=== PATIENT | female | born 1940 | race Caucasian/White ===

== ENCOUNTER 2020-01-15 19:04 | Inpatient (IN) | payer MEDICARE, MEDICAID, OTHER ==
[~2020-01-15] VITALS: Ht 165.1 cm; Wt 88.5 kg
[2020-01-15 20:34] LABS: BASOPHILS % 0.3 % (0.0-2.0); HEMATOCRIT. 35.3 % (36.0-48.0); HEMOGLOBIN. 11.8 g/dL (12.0-16.0); LYMPHOCYTES % 8.2 % (20.0-50.0); MEAN CORPUSCULAR HEMOGLOBIN 26.9 pg (28.0-32.0); MEAN CORPUSCULAR VOLUME 80.3 fL (81.0-99.0); MEAN PLATELET VOLUME 8.6 fl (7.4-10.4); MONOCYTES % 4.6 % (2.0-8.0); NEUTROPHILS % 84.9 % (40.0-76.0); PLATELET 152 x1000/uL (130-400); RED CELL DISTRIBUTION WIDTH 14.5 % (11.6-14.6)
[2020-01-15 20:39] LABS: PROTHROMBIN TIME 10.5 sec (9.6-11.0)
[2020-01-15 20:40] LABS: CHLORIDE 110 mEq/L (98-107)
[2020-01-15] MEDS ORDERED: ASPIRIN 325MG EC TABLET PO ONE (21:15)
[2020-01-15] MEDS ORDERED: ENOXAPARIN 80MG/0.8ML SYR SUBCUT ONE (21:15)
[2020-01-15] MEDS ORDERED: POTASSIUM CHLORIDE 20MEQ TABLET SR PO ONE (22:15)
[2020-01-16] VITALS (27 sets, daily range): BP systolic 117–151; BP diastolic 57–88
[2020-01-16] MEDS ORDERED: ACETAMINOPHEN 325MG TABLET PO PRN ×2 (01:45→13:30)
[2020-01-16] MEDS ORDERED: HYDROCODONE/ACETAMINOPHEN 5/325MG TABLET PO PRN (01:45)
[2020-01-16] MEDS ORDERED: DEXTROSE 50% WATER 50ML SYRINGE IV PRN (01:45)
[2020-01-16] MEDS: INSULIN LISPRO 100 UNITS/ML SUBCUT SCH ×4 (07:20→21:46)
[2020-01-16] MEDS: BLOOD SUGAR DIAGNOSTIC STRIP TEST SCH ×4 (07:39→21:54)
[2020-01-16] MEDS: ASPIRIN 81MG TABLET PO SCH (08:21)
[2020-01-16] MEDS: SODIUM CHLORIDE 0.45% 1,000 ML IV SCH (08:21)
[2020-01-16] MEDS: FOLIC ACID 1MG TABLET PO SCH (08:21)
[2020-01-16] MEDS: NITROGLYCERIN OINT 1GM/INCH UDPKT TD SCH ×3 (08:27→21:47)
[2020-01-16 08:56] LABS: BASOPHILS % 0.8 % (0.0-2.0); EOSINOPHILS % 1.6 % (0.0-5.0); HEMATOCRIT. 34.5 % (36.0-48.0); HEMOGLOBIN. 11.5 g/dL (12.0-16.0); LYMPHOCYTES % 15.5 % (20.0-50.0); MEAN CORPUSCULAR HEMOGLOBIN 26.9 pg (28.0-32.0); MEAN CORPUSCULAR VOLUME 80.5 fL (81.0-99.0); MEAN PLATELET VOLUME 8.6 fl (7.4-10.4); MONOCYTES % 6.9 % (2.0-8.0); NEUTROPHILS % 75.2 % (40.0-76.0); PLATELET 155 x1000/uL (130-400); RED BLOOD CELL COUNT 4.29 mill/uL (4.2-5.4); RED CELL DISTRIBUTION WIDTH 14.3 % (11.6-14.6)
[2020-01-16] MEDS ORDERED: ENOXAPARIN 40MG/0.4ML SYR SUBCUT SCH (09:00)
[2020-01-16] MEDS: METOPROLOL TARTRATE 25MG TABLET PO SCH ×2 (09:00→21:45)
[2020-01-16] MEDS ORDERED: MIDAZOLAM HCL 2 MG/2 ML VIAL ONE (12:34)
[2020-01-16] MEDS ORDERED: IOHEXOL-300 100 ML BOTTLE ONE (12:35)
[2020-01-16] MEDS ORDERED: LIDOCAINE HCL 1% 20ML VIAL (Pyxis) INJ ONE (12:35)
[2020-01-16] MEDS ORDERED: FENTANYL CITRATE/PF 50MCG/ML 2ML VIAL ONE (12:35)
[2020-01-16] MEDS ORDERED: HEPARIN 1,000 UNITS PREMIX 0 ML IV ONE (12:35)
[2020-01-16] MEDS ORDERED: HEPARIN SODIUM 1,000 UNIT/1ML VIAL IV ONE (12:43)
[2020-01-16] MEDS ORDERED: ATROPINE SULFATE 1MG/10ML SYR IV PRN (13:30)
[2020-01-16] MEDS ORDERED: IODIXANOL 320MG/ML 100 ML BOTTLE IV ONE (13:53)
[2020-01-16] MEDS: CLOPIDOGREL 75MG TABLET PO SCH (14:02)
[2020-01-16] MEDS: ATORVASTATIN CALCIUM 10MG TABLET PO SCH (21:44)
[2020-01-17] VITALS (13 sets, daily range): BP systolic 106–151; BP diastolic 53–77
[2020-01-17] MEDS: NITROGLYCERIN OINT 1GM/INCH UDPKT TD SCH ×3 (06:53→21:20)
[2020-01-17] MEDS: SODIUM CHLORIDE 0.45% 1,000 ML IV SCH ×3 (06:53→21:21)
[2020-01-17] MEDS: BLOOD SUGAR DIAGNOSTIC STRIP TEST SCH ×4 (06:53→21:20)
[2020-01-17] MEDS: INSULIN LISPRO 100 UNITS/ML SUBCUT SCH ×4 (07:15→21:00)
[2020-01-17 07:53] LABS: BASOPHILS % 0.4 % (0.0-2.0); HEMATOCRIT. 32.2 % (36.0-48.0); HEMOGLOBIN. 10.9 g/dL (12.0-16.0); LYMPHOCYTES % 12.7 % (20.0-50.0); MEAN CORPUSCULAR HEMOGLOBIN 27.3 pg (28.0-32.0); MEAN CORPUSCULAR VOLUME 80.6 fL (81.0-99.0); MEAN PLATELET VOLUME 8.8 fl (7.4-10.4); MONOCYTES % 8.3 % (2.0-8.0); NEUTROPHILS % 77.6 % (40.0-76.0); PLATELET 136 x1000/uL (130-400); RED BLOOD CELL COUNT 3.99 mill/uL (4.2-5.4); RED CELL DISTRIBUTION WIDTH 14.4 % (11.6-14.6)
[2020-01-17] MEDS: CLOPIDOGREL 75MG TABLET PO SCH (08:26)
[2020-01-17] MEDS: ASPIRIN 81MG TABLET PO SCH (08:26)
[2020-01-17] MEDS: METOPROLOL TARTRATE 25MG TABLET PO SCH (08:28)
[2020-01-17] MEDS: FOLIC ACID 1MG TABLET PO SCH (08:30)
[2020-01-17] MEDS: APIXABAN 5 MG TABLET PO SCH ×2 (09:39→17:13)
[2020-01-17] MEDS ORDERED: APIX5TAB PO (13:21)
[2020-01-17] MEDS ORDERED: ATOR10TA PO (13:21)
[2020-01-17] MEDS: ATORVASTATIN CALCIUM 10MG TABLET PO SCH (21:21)
[2020-01-18] VITALS (11 sets, daily range): BP systolic 100–159; BP diastolic 60–88
[2020-01-18] MEDS: NITROGLYCERIN OINT 1GM/INCH UDPKT TD SCH ×3 (06:11→22:38)
[2020-01-18] MEDS: BLOOD SUGAR DIAGNOSTIC STRIP TEST SCH ×4 (06:50→22:31)
[2020-01-18 06:52] LABS: BASOPHILS % 0.4 % (0.0-2.0); EOSINOPHILS % 1.6 % (0.0-5.0); HEMATOCRIT. 30.1 % (36.0-48.0); HEMOGLOBIN. 10.2 g/dL (12.0-16.0); LYMPHOCYTES % 11.9 % (20.0-50.0); MEAN CORPUSCULAR HEMOGLOBIN 27.2 pg (28.0-32.0); MEAN CORPUSCULAR VOLUME 80.2 fL (81.0-99.0); MEAN PLATELET VOLUME 8.9 fl (7.4-10.4); MONOCYTES % 10.5 % (2.0-8.0); NEUTROPHILS % 75.6 % (40.0-76.0); PLATELET 124 x1000/uL (130-400); RED BLOOD CELL COUNT 3.75 mill/uL (4.2-5.4); RED CELL DISTRIBUTION WIDTH 14.3 % (11.6-14.6)
[2020-01-18] MEDS: INSULIN LISPRO 100 UNITS/ML SUBCUT SCH ×4 (07:20→22:40)
[2020-01-18] MEDS: APIXABAN 5 MG TABLET PO SCH ×2 (09:01→18:29)
[2020-01-18] MEDS: CLOPIDOGREL 75MG TABLET PO SCH (09:01)
[2020-01-18] MEDS: ASPIRIN 81MG TABLET PO SCH (09:02)
[2020-01-18] MEDS: FOLIC ACID 1MG TABLET PO SCH (09:02)
[2020-01-18] MEDS: SODIUM CHLORIDE 0.45% 1,000 ML IV SCH (11:17)
[2020-01-18] MEDS: FUROSEMIDE 40MG/4ML VIAL IVP SCH ×2 (13:11→18:29)
[2020-01-18] MEDS: ATORVASTATIN CALCIUM 10MG TABLET PO SCH (22:38)
[2020-01-19] VITALS (12 sets, daily range): BP systolic 106–158; BP diastolic 57–86
[2020-01-19] MEDS: BLOOD SUGAR DIAGNOSTIC STRIP TEST SCH ×4 (06:21→22:08)
[2020-01-19] MEDS: NITROGLYCERIN OINT 1GM/INCH UDPKT TD SCH ×3 (06:26→22:04)
[2020-01-19 06:49] LABS: BASOPHILS % 0.8 % (0.0-2.0); EOSINOPHILS % 1.1 % (0.0-5.0); HEMATOCRIT. 31.4 % (36.0-48.0); HEMOGLOBIN. 10.7 g/dL (12.0-16.0); LYMPHOCYTES % 13.5 % (20.0-50.0); MEAN CORPUSCULAR HEMOGLOBIN 27.1 pg (28.0-32.0); MEAN CORPUSCULAR VOLUME 79.6 fL (81.0-99.0); MEAN PLATELET VOLUME 8.8 fl (7.4-10.4); MONOCYTES % 9.1 % (2.0-8.0); NEUTROPHILS % 75.5 % (40.0-76.0); PLATELET 143 x1000/uL (130-400); RED BLOOD CELL COUNT 3.94 mill/uL (4.2-5.4); RED CELL DISTRIBUTION WIDTH 14.4 % (11.6-14.6)
[2020-01-19] MEDS: FUROSEMIDE 40MG/4ML VIAL IVP SCH ×2 (07:15→16:15)
[2020-01-19] MEDS: INSULIN LISPRO 100 UNITS/ML SUBCUT SCH ×4 (07:20→22:15)
[2020-01-19] MEDS: CLOPIDOGREL 75MG TABLET PO SCH (08:28)
[2020-01-19] MEDS: FOLIC ACID 1MG TABLET PO SCH (08:29)
[2020-01-19] MEDS: APIXABAN 5 MG TABLET PO SCH ×2 (08:29→16:15)
[2020-01-19] MEDS: ASPIRIN 81MG TABLET PO SCH (08:29)
[2020-01-19] MEDS: MAGNESIUM GLUCONATE 500MG TABLET PO SCH (10:07)
[2020-01-19] MEDS: POTASSIUM CHLORIDE 20MEQ TABLET SR PO SCH (10:10)
[2020-01-19] MEDS: ATORVASTATIN CALCIUM 10MG TABLET PO SCH (22:04)
[2020-01-20] VITALS: BP 119/72
[2020-01-20 02:00] VITALS: BP 127/63
[2020-01-20 04:00] VITALS: BP 114/54
[2020-01-20] MEDS: NITROGLYCERIN OINT 1GM/INCH UDPKT TD SCH (05:37)
[2020-01-20] MEDS: BLOOD SUGAR DIAGNOSTIC STRIP TEST SCH ×2 (05:42→11:34)
[2020-01-20 06:00] VITALS: BP 123/68
[2020-01-20] MEDS: FUROSEMIDE 40MG/4ML VIAL IVP SCH (07:15)
[2020-01-20] MEDS: INSULIN LISPRO 100 UNITS/ML SUBCUT SCH ×2 (07:20→11:34)
[2020-01-20 08:00] VITALS: BP 133/62
[2020-01-20] MEDS: CLOPIDOGREL 75MG TABLET PO SCH (08:50)
[2020-01-20] MEDS: ASPIRIN 81MG TABLET PO SCH (08:50)
[2020-01-20] MEDS: MAGNESIUM GLUCONATE 500MG TABLET PO SCH (08:50)
[2020-01-20] MEDS: APIXABAN 5 MG TABLET PO SCH (08:50)
[2020-01-20] MEDS: FOLIC ACID 1MG TABLET PO SCH (08:50)
[2020-01-20] MEDS: POTASSIUM CHLORIDE 20MEQ TABLET SR PO SCH (08:51)
[2020-01-20 10:00] VITALS: BP 110/57
[2020-01-20] MEDS ORDERED: FURO-151 MT (12:53)
== END 2020-01-20 13:16 | disposition home or self-care (01) | DRG 280 ==
LOC: ER 19:04 → 3WST 22:02 → EDBEDREQTM 22:06 → EDBEDREQSVC 22:06 → EDBEDREQ 22:06 → ENRESERV 23:03
PROVIDERS: ADMIT Internal Medicine; ATTEND Internal Medicine
PROC: 3E033GC Introduction of Other Therapeutic Substance into Peripheral Vein, Percutaneous Approach (ICD-10-PCS; principal; 2020-01-16)
PROC: 4A023N7 Measurement of Cardiac Sampling and Pressure, Left Heart, Percutaneous Approach (ICD-10-PCS; 2020-01-16)
PROC: B2161ZZ Fluoroscopy of Right and Left Heart using Low Osmolar Contrast (ICD-10-PCS; 2020-01-16)
DX: I21.4 Non-ST elevation (NSTEMI) myocardial infarction (principal); I50.41 Acute combined systolic (congestive) and diastolic (congestive) heart failure; I47.2 Ventricular tachycardia; I42.9 Cardiomyopathy, unspecified; E44.0 Moderate protein-calorie malnutrition; E11.9 Type 2 diabetes mellitus without complications; E78.5 Hyperlipidemia, unspecified; I25.110 Atherosclerotic heart disease of native coronary artery with unstable angina pectoris; I48.91 Unspecified atrial fibrillation; E87.6 Hypokalemia; E83.42 Hypomagnesemia; I11.0 Hypertensive heart disease with heart failure; I27.21 Secondary pulmonary arterial hypertension; I34.0 Nonrheumatic mitral (valve) insufficiency; I36.1 Nonrheumatic tricuspid (valve) insufficiency; Z95.1 Presence of aortocoronary bypass graft; Z95.2 Presence of prosthetic heart valve; Z82.49 Family history of ischemic heart disease and other diseases of the circulatory system; Z82.3 Family history of stroke; Z68.32 Body mass index [BMI] 32.0-32.9, adult
CPT/HCPCS: 36415; 71045; 71046; 80048; 80053; 80061; 82962; 83036; 83735; 83880; 84443; 84484; 85025; 93005; 93306; 93459; 99285; C1760; C1769; C1887; C1893; J1644; J1650; J1815; J1940; J2250; J3010; J3490; Q9967

== ENCOUNTER 2020-04-18 11:54 | Inpatient (IN) | payer MEDICARE, BC, MEDICAID, OTHER ==
[~2020-04-18] VITALS: Ht 165.1 cm; Wt 77.3 kg
[~2020-04-18 11:54] MED LIST: APIX5TAB PO; ATOR10TA PO; FURO-151 MT
[2020-04-18] MEDS: LOSARTAN POTASSIUM 25 MG TABLET PO SCH ×3 (12:30→13:26)
[2020-04-18 12:34] LABS: BASOPHILS % 0.6 % (0.0-2.0); EOSINOPHILS % 1.3 % (0.0-5.0); HEMATOCRIT. 31.6 % (36.0-48.0); HEMOGLOBIN. 10.2 g/dL (12.0-16.0); LYMPHOCYTES % 11.1 % (20.0-50.0); MEAN CORPUSCULAR HEMOGLOBIN 26.1 pg (28.0-32.0); MEAN CORPUSCULAR VOLUME 80.7 fL (81.0-99.0); MEAN PLATELET VOLUME 8.9 fl (7.4-10.4); MONOCYTES % 6.2 % (2.0-8.0); NEUTROPHILS % 80.8 % (40.0-76.0); PLATELET 138 x1000/uL (130-400); RED BLOOD CELL COUNT 3.92 mill/uL (4.2-5.4); RED CELL DISTRIBUTION WIDTH 16.2 % (11.6-14.6)
[2020-04-18 12:44] LABS: INR 1.1; PROTHROMBIN TIME 11.4 sec (9.6-11.0)
[2020-04-18 12:45] LABS: CHLORIDE 102 mEq/L (98-107)
[2020-04-18 12:51] LABS: LDL CHOLESTEROL 75 mg/dL (5-100)
[2020-04-18 12:52] LABS: HDL CHOLESTEROL 51 mg/dL (40-59)
[2020-04-18] MEDS: FUROSEMIDE 40MG/4ML VIAL IVP SCH ×2 (12:56→22:55)
[2020-04-18] MEDS ORDERED: APIXABAN 5 MG TABLET PO NR (13:30)
[2020-04-18] MEDS: POTASSIUM CHLORIDE 20MEQ TABLET SR PO SCH (13:45)
[2020-04-18] MEDS ORDERED: HEPARIN 1000 UNITS/ML 10ML ONE (14:04)
[2020-04-18] MEDS ORDERED: LIDOCAINE HCL 1% 20ML VIAL (Pyxis) INJ ONE (14:04)
[2020-04-18] MEDS ORDERED: SODIUM BICARBONATE 4% (2.4MEQ) 5ML VIAL IV ONE (14:04)
[2020-04-18] MEDS ORDERED: POTASSIUM CHLORIDE 20MEQ TABLET SR PO SCH (14:15)
[2020-04-18] MEDS ORDERED: ONDANSETRON HCL 4MG/2ML INJ IV PRN (14:15)
[2020-04-18] MEDS ORDERED: POTASSIUM CHLORIDE 20MEQ TABLET SR PO ONE (15:30)
[2020-04-18] MEDS: INSULIN LISPRO 100 UNITS/ML SUBCUT SCH ×2 (17:20→20:55)
[2020-04-18] MEDS: DEXTROSE 50% WATER 50ML SYRINGE IV PRN (17:23)
[2020-04-18] MEDS: BLOOD SUGAR DIAGNOSTIC STRIP TEST SCH ×2 (17:23→20:55)
[2020-04-18 18:43] VITALS: BP 136/57
[2020-04-18 20:10] VITALS: BP 109/54
[2020-04-18] MEDS ORDERED: TRAZODONE HCL 50MG TABLET PO PRN (21:00)
[2020-04-18] MEDS: CARVEDILOL 3.125 MG TABLET PO SCH (21:00)
[2020-04-18 22:10] VITALS: BP 104/55
[2020-04-18] MEDS: ATORVASTATIN CALCIUM 40MG TABLET PO SCH (22:55)
[2020-04-18] MEDS: APIXABAN 5 MG TABLET PO SCH (22:55)
[2020-04-18] MEDS: ACETAMINOPHEN 325MG TABLET PO PRN (23:02)
[2020-04-19] VITALS (17 sets, daily range): BP systolic 96–124; BP diastolic 44–85
[2020-04-19 02:03] LABS: CLARITY URINE CLOUDY (CLEAR); COLOR URINE DARK YELLOW (YELLOW); KETONES URINE NEGATIVE (NEGATIVE); LEUKOCYTE ESTERASE URINE 2+ (NEGATIVE); NITRITE URINE NEGATIVE (NEGATIVE); OCCULT BLOOD URINE TRACE (NEGATIVE); PROTEIN URINE 2+ (NEGATIVE); SPECIFIC GRAVITY URINE 1.021 (1.005-1.030)
[2020-04-19] MEDS: BLOOD SUGAR DIAGNOSTIC STRIP TEST SCH ×4 (06:22→21:33)
[2020-04-19] MEDS: DEXTROSE 50% WATER 50ML SYRINGE IV PRN (06:23)
[2020-04-19 06:38] LABS: CHLORIDE 105 mEq/L (98-107)
[2020-04-19] MEDS ORDERED: CEFTRIAXONE 1 G PREMIX 50 ML IV SCH (06:45)
[2020-04-19 06:50] LABS: LDL CHOLESTEROL 70 mg/dL (5-100)
[2020-04-19 06:51] LABS: HDL CHOLESTEROL 46 mg/dL (40-59)
[2020-04-19 07:10] LABS: BASOPHILS % 0.8 % (0.0-2.0); EOSINOPHILS % 5.2 % (0.0-5.0); HEMATOCRIT. 29.2 % (36.0-48.0); HEMOGLOBIN. 9.5 g/dL (12.0-16.0); LYMPHOCYTES % 18.7 % (20.0-50.0); MEAN CORPUSCULAR HEMOGLOBIN 26.1 pg (28.0-32.0); MEAN CORPUSCULAR VOLUME 80.6 fL (81.0-99.0); MEAN PLATELET VOLUME 9.1 fl (7.4-10.4); MONOCYTES % 10.5 % (2.0-8.0); NEUTROPHILS % 64.8 % (40.0-76.0); PLATELET 116 x1000/uL (130-400); RED BLOOD CELL COUNT 3.63 mill/uL (4.2-5.4)
[2020-04-19] MEDS: INSULIN LISPRO 100 UNITS/ML SUBCUT SCH ×2 (07:20→12:02)
[2020-04-19] MEDS ORDERED: CEFTRIAXONE 1,000 MG in DEXTROSE 5% WATER 50 ML IV SCH (08:00)
[2020-04-19] MEDS: FUROSEMIDE 40MG/4ML VIAL IVP SCH (08:27)
[2020-04-19] MEDS: POTASSIUM CHLORIDE 20MEQ TABLET SR PO SCH (08:28)
[2020-04-19] MEDS: APIXABAN 5 MG TABLET PO SCH (08:28)
[2020-04-19] MEDS: CARVEDILOL 3.125 MG TABLET PO SCH ×2 (08:29→21:00)
[2020-04-19] MEDS ORDERED: POTASSIUM CHLORIDE 20MEQ TABLET SR PO SCH (08:45)
[2020-04-19] MEDS ORDERED: POTASSIUM CHLORIDE 20MEQ TABLET SR PO NR ×2 (13:15→15:00)
[2020-04-19] MEDS: APIXABAN 2.5 MG TABLET PO SCH (16:54)
[2020-04-19] MEDS ORDERED: ALBUMIN HUMAN 12.5GM/50ML (25%) IV NR (17:00)
[2020-04-19] MEDS: ATORVASTATIN CALCIUM 40MG TABLET PO SCH (22:45)
[2020-04-20] VITALS (18 sets, daily range): BP systolic 93–132; BP diastolic 35–70
[2020-04-20] MEDS: BLOOD SUGAR DIAGNOSTIC STRIP TEST SCH ×4 (06:14→20:31)
[2020-04-20 06:23] LABS: BASOPHILS % 0.6 % (0.0-2.0); EOSINOPHILS % 3.5 % (0.0-5.0); HEMATOCRIT. 29.8 % (36.0-48.0); HEMOGLOBIN. 9.5 g/dL (12.0-16.0); LYMPHOCYTES % 14.1 % (20.0-50.0); MEAN CORPUSCULAR HEMOGLOBIN 26.1 pg (28.0-32.0); MEAN CORPUSCULAR VOLUME 81.4 fL (81.0-99.0); MEAN PLATELET VOLUME 8.6 fl (7.4-10.4); MONOCYTES % 7.5 % (2.0-8.0); NEUTROPHILS % 74.3 % (40.0-76.0); PLATELET 128 x1000/uL (130-400); RED BLOOD CELL COUNT 3.66 mill/uL (4.2-5.4); RED CELL DISTRIBUTION WIDTH 16.2 % (11.6-14.6)
[2020-04-20 06:34] LABS: CHLORIDE 103 mEq/L (98-107)
[2020-04-20] MEDS ORDERED: FUROSEMIDE 40MG/4ML VIAL IVP SCH (09:00)
[2020-04-20] MEDS: CARVEDILOL 3.125 MG TABLET PO SCH ×2 (09:28→20:27)
[2020-04-20] MEDS: APIXABAN 2.5 MG TABLET PO SCH ×2 (09:29→17:28)
[2020-04-20] MEDS: ATORVASTATIN CALCIUM 40MG TABLET PO SCH (20:26)
[2020-04-21] VITALS (12 sets, daily range): BP systolic 95–124; BP diastolic 42–58
[2020-04-21] MEDS: BLOOD SUGAR DIAGNOSTIC STRIP TEST SCH ×4 (06:32→21:16)
[2020-04-21 07:17] LABS: BASOPHILS % 0.9 % (0.0-2.0); EOSINOPHILS % 4.6 % (0.0-5.0); HEMATOCRIT. 30.3 % (36.0-48.0); HEMOGLOBIN. 9.8 g/dL (12.0-16.0); LYMPHOCYTES % 16.8 % (20.0-50.0); MEAN CORPUSCULAR HEMOGLOBIN 25.9 pg (28.0-32.0); MEAN CORPUSCULAR VOLUME 80.4 fL (81.0-99.0); MONOCYTES % 9.9 % (2.0-8.0); NEUTROPHILS % 67.8 % (40.0-76.0); PLATELET 116 x1000/uL (130-400); RED BLOOD CELL COUNT 3.77 mill/uL (4.2-5.4)
[2020-04-21 07:48] LABS: CHLORIDE 103 mEq/L (98-107)
[2020-04-21] MEDS: CARVEDILOL 3.125 MG TABLET PO SCH ×2 (08:07→21:00)
[2020-04-21] MEDS: APIXABAN 2.5 MG TABLET PO SCH ×2 (08:28→17:17)
[2020-04-21] MEDS ORDERED: DEXTROSE 50% WATER 50ML SYRINGE IV PRN (21:15)
[2020-04-21] MEDS: ATORVASTATIN CALCIUM 40MG TABLET PO SCH (21:16)
[2020-04-21] MEDS: INSULIN LISPRO 100 UNITS/ML SUBCUT SCH (21:26)
[2020-04-22] VITALS (12 sets, daily range): BP systolic 96–123; BP diastolic 47–63
[2020-04-22] MEDS: BLOOD SUGAR DIAGNOSTIC STRIP TEST SCH ×4 (06:17→20:53)
[2020-04-22] MEDS ORDERED: BLOOD SUGAR DIAGNOSTIC STRIP TEST SCH (06:50)
[2020-04-22] MEDS ORDERED: INSULIN LISPRO 100 UNITS/ML SUBCUT SCH (07:20)
[2020-04-22 07:42] LABS: BASOPHILS % 0.7 % (0.0-2.0); EOSINOPHILS % 5.8 % (0.0-5.0); HEMATOCRIT. 29.7 % (36.0-48.0); HEMOGLOBIN. 9.7 g/dL (12.0-16.0); LYMPHOCYTES % 17.4 % (20.0-50.0); MEAN CORPUSCULAR HEMOGLOBIN 26.3 pg (28.0-32.0); MEAN CORPUSCULAR VOLUME 80.8 fL (81.0-99.0); MEAN PLATELET VOLUME 8.7 fl (7.4-10.4); MONOCYTES % 8.4 % (2.0-8.0); NEUTROPHILS % 67.7 % (40.0-76.0); PLATELET 107 x1000/uL (130-400); RED BLOOD CELL COUNT 3.68 mill/uL (4.2-5.4); RED CELL DISTRIBUTION WIDTH 15.4 % (11.6-14.6)
[2020-04-22 07:56] LABS: CHLORIDE 103 mEq/L (98-107)
[2020-04-22] MEDS: INSULIN LISPRO 100 UNITS/ML SUBCUT SCH ×4 (08:13→20:55)
[2020-04-22] MEDS: APIXABAN 2.5 MG TABLET PO SCH ×2 (08:13→17:19)
[2020-04-22] MEDS: CARVEDILOL 3.125 MG TABLET PO SCH ×2 (08:14→20:52)
[2020-04-22] MEDS: ACETAMINOPHEN 325MG TABLET PO PRN (17:19)
[2020-04-22] MEDS: ATORVASTATIN CALCIUM 40MG TABLET PO SCH (20:52)
[2020-04-22] MEDS: AMLODIPINE 2.5MG TABLET PO SCH (20:53)
[2020-04-23] VITALS (10 sets, daily range): BP systolic 102–122; BP diastolic 44–72
[2020-04-23] MEDS: BLOOD SUGAR DIAGNOSTIC STRIP TEST SCH (06:21)
[2020-04-23] MEDS ORDERED: FUROSEMIDE 40MG TABLET PO SCH (07:00)
[2020-04-23 09:07] LABS: BASOPHILS % 0.8 % (0.0-2.0); EOSINOPHILS % 6.9 % (0.0-5.0); HEMATOCRIT. 30.7 % (36.0-48.0); LYMPHOCYTES % 16.2 % (20.0-50.0); MEAN CORPUSCULAR HEMOGLOBIN 26.4 pg (28.0-32.0); MEAN CORPUSCULAR VOLUME 80.9 fL (81.0-99.0); MONOCYTES % 7.8 % (2.0-8.0); NEUTROPHILS % 68.3 % (40.0-76.0); PLATELET 106 x1000/uL (130-400); RED CELL DISTRIBUTION WIDTH 15.5 % (11.6-14.6)
[2020-04-23] MEDS: APIXABAN 2.5 MG TABLET PO SCH (09:15)
[2020-04-23] MEDS: AMLODIPINE 2.5MG TABLET PO SCH (09:16)
[2020-04-23] MEDS: CARVEDILOL 3.125 MG TABLET PO SCH (09:16)
[2020-04-23] MEDS: INSULIN LISPRO 100 UNITS/ML SUBCUT SCH ×2 (09:17→12:20)
[2020-04-23 09:21] LABS: CHLORIDE 104 mEq/L (98-107)
[2020-04-23] MEDS ORDERED: FURO40TA5 PO (13:15)
[2020-04-23] MEDS ORDERED: COR3 PO (13:15)
[2020-04-23] MEDS ORDERED: LIP40 PO (13:15)
[2020-04-23] MEDS ORDERED: LOSA25TA3 PO (13:15)
[2020-04-23] MEDS ORDERED: APIX2.5T PO (13:15)
[2020-04-23] MEDS ORDERED: AMLO2.5T45 PO (13:15)
== END 2020-04-23 14:30 | disposition home health service (06) | DRG 280 ==
LOC: ER 11:54 → EDBEDREQTM 12:35 → EDBEDREQ 12:35 → 3WST 13:08 → EDBEDREQ 13:11 → EDBEDREQTM 13:11 → EDBEDREQSVC 14:03 → ENRESERV 16:03
PROVIDERS: ADMIT Internal Medicine; ATTEND Internal Medicine
PROC: 5A1D70Z Performance of Urinary Filtration, Intermittent, Less than 6 Hours Per Day (ICD-10-PCS; principal; 2020-04-18)
PROC: 06HY33Z Insertion of Infusion Device into Lower Vein, Percutaneous Approach (ICD-10-PCS; 2020-04-18)
PROC: B54BZZA Ultrasonography of Right Lower Extremity Veins, Guidance (ICD-10-PCS; 2020-04-18)
PROC: B51BZZA Fluoroscopy of Right Lower Extremity Veins, Guidance (ICD-10-PCS; 2020-04-18)
PROC: 5A1D70Z Performance of Urinary Filtration, Intermittent, Less than 6 Hours Per Day (ICD-10-PCS; 2020-04-19)
PROC: 5A1D70Z Performance of Urinary Filtration, Intermittent, Less than 6 Hours Per Day (ICD-10-PCS; 2020-04-20)
PROC: 5A1D70Z Performance of Urinary Filtration, Intermittent, Less than 6 Hours Per Day (ICD-10-PCS; 2020-04-21)
DX: I13.0 Hypertensive heart and chronic kidney disease with heart failure and stage 1 through stage 4 chronic kidney disease, or unspecified chronic kidney disease (principal); I50.33 Acute on chronic diastolic (congestive) heart failure; I21.4 Non-ST elevation (NSTEMI) myocardial infarction; N17.9 Acute kidney failure, unspecified; I48.20 Chronic atrial fibrillation, unspecified; J84.9 Interstitial pulmonary disease, unspecified; I42.9 Cardiomyopathy, unspecified; E87.6 Hypokalemia; E78.5 Hyperlipidemia, unspecified; I08.1 Rheumatic disorders of both mitral and tricuspid valves; I25.10 Atherosclerotic heart disease of native coronary artery without angina pectoris; I27.21 Secondary pulmonary arterial hypertension; D64.9 Anemia, unspecified; I95.9 Hypotension, unspecified; E11.22 Type 2 diabetes mellitus with diabetic chronic kidney disease; E11.649 Type 2 diabetes mellitus with hypoglycemia without coma; N18.9 Chronic kidney disease, unspecified; E11.65 Type 2 diabetes mellitus with hyperglycemia; Z85.89 Personal history of malignant neoplasm of other organs and systems; Z95.1 Presence of aortocoronary bypass graft; I25.2 Old myocardial infarction; Z95.2 Presence of prosthetic heart valve
CPT/HCPCS: 36415; 71045; 76937; 80053; 80061; 81003; 82570; 82962; 83036; 83735; 83880; 84156; 84484; 85025; 93005; 93306; 97162; 99285; C1752; J0696; J1642; J1644; J1815; J1940; J3490; J7060; P9047

== ENCOUNTER 2020-05-30 07:30 | Inpatient (IN) | payer MEDICARE, OTHER ==
[~2020-05-30] VITALS: Ht 165.1 cm; Wt 74.4 kg
[~2020-05-30 07:30] MED LIST changes: +AMLO2.5T45 PO; +APIX2.5T PO; -APIX5TAB PO; -ATOR10TA PO; +COR3 PO; -FURO-151 MT; +FURO40TA5 PO; +LIP40 PO
[2020-05-30 09:05] LABS: HEMATOCRIT. 30.5 % (36.0-48.0); HEMOGLOBIN. 9.9 g/dL (12.0-16.0); MEAN CORPUSCULAR HEMOGLOBIN 26.5 pg (28.0-32.0); MEAN CORPUSCULAR VOLUME 81.4 fL (81.0-99.0); MEAN PLATELET VOLUME 8.1 fl (7.4-10.4); PLATELET 150 x1000/uL (130-400); RED BLOOD CELL COUNT 3.75 mill/uL (4.2-5.4); RED CELL DISTRIBUTION WIDTH 16.3 % (11.6-14.6)
[2020-05-30 09:11] LABS: CHLORIDE 110 mEq/L (98-107)
[2020-05-30 09:55] LABS: PLATELET ESTIMATE NORMAL
[2020-05-30 10:29] LABS: CLARITY URINE CLEAR (CLEAR); COLOR URINE YELLOW (YELLOW); KETONES URINE NEGATIVE (NEGATIVE); LEUKOCYTE ESTERASE URINE 1+ (NEGATIVE); NITRITE URINE NEGATIVE (NEGATIVE); OCCULT BLOOD URINE NEGATIVE (NEGATIVE); PROTEIN URINE 3+ (NEGATIVE); SPECIFIC GRAVITY URINE 1.027 (1.005-1.030)
[2020-05-30] MEDS ORDERED: LOSARTAN POTASSIUM 25 MG TABLET PO SCH (11:00)
[2020-05-30] MEDS ORDERED: FUROSEMIDE 40MG/4ML VIAL IVP SCH ×2 (11:00→17:15)
[2020-05-30] MEDS ORDERED: DEXTROSE 50% WATER 50ML SYRINGE IV PRN (12:00)
[2020-05-30] MEDS ORDERED: ACETAMINOPHEN 325MG TABLET PO PRN (12:00)
[2020-05-30] MEDS ORDERED: ONDANSETRON HCL 4MG/2ML INJ IV PRN (12:00)
[2020-05-30 12:58] LABS: TOTAL IRON BINDING CAPACITY 380 ug/dL (250-450)
[2020-05-30] MEDS: BLOOD SUGAR DIAGNOSTIC STRIP TEST SCH ×2 (13:35→21:10)
[2020-05-30 16:11] LABS: FOLIC ACID (FOLATE) SERUM 9.6 ng/mL (>5.38)
[2020-05-30] MEDS ORDERED: FUROSEMIDE 40MG TABLET PO SCH (17:15)
[2020-05-30 18:00] VITALS: BP 144/64
[2020-05-30 18:59] VITALS: BP 144/64
[2020-05-30 20:00] VITALS: BP 140/53
[2020-05-30] MEDS ORDERED: ROSU40TA PO (20:34)
[2020-05-30] MEDS ORDERED: FOLI-43 PO (20:34)
[2020-05-30] MEDS ORDERED: POTA25TA8 PO (20:34)
[2020-05-30] MEDS ORDERED: AMIO100T4 PO (20:34)
[2020-05-30] MEDS ORDERED: CARV25TA47 PO (20:34)
[2020-05-30] MEDS ORDERED: FURO40TA5 PO (20:34)
[2020-05-30] MEDS ORDERED: CRES10 PO (20:34)
[2020-05-30] MEDS ORDERED: APIX5TAB PO (20:34)
[2020-05-30] MEDS ORDERED: INSU100I28 SQ (20:34)
[2020-05-30] MEDS ORDERED: ASPI-1497 PO (20:34)
[2020-05-30] MEDS ORDERED: LINA5TAB PO (20:34)
[2020-05-30] MEDS ORDERED: SACU1TAB PO (20:34)
[2020-05-30] MEDS ORDERED: LISI-186 PO (20:34)
[2020-05-30] MEDS ORDERED: AMLODIPINE 2.5MG TABLET PO SCH (21:00)
[2020-05-30] MEDS ORDERED: TRAZODONE HCL 50MG TABLET PO PRN (21:00)
[2020-05-30] MEDS: CARVEDILOL 3.125 MG TABLET PO SCH (21:10)
[2020-05-30] MEDS: ATORVASTATIN CALCIUM 40MG TABLET PO SCH (21:18)
[2020-05-31] VITALS: BP 122/81
[2020-05-31 04:00] VITALS: BP 119/59
[2020-05-31] MEDS: BLOOD SUGAR DIAGNOSTIC STRIP TEST SCH ×4 (06:13→20:20)
[2020-05-31 07:06] LABS: BASOPHILS % 0.6 % (0.0-2.0); EOSINOPHILS % 5.5 % (0.0-5.0); HEMATOCRIT. 28.1 % (36.0-48.0); HEMOGLOBIN. 9.2 g/dL (12.0-16.0); LYMPHOCYTES % 12.8 % (20.0-50.0); MEAN CORPUSCULAR HEMOGLOBIN 26.3 pg (28.0-32.0); MEAN CORPUSCULAR VOLUME 80.3 fL (81.0-99.0); MEAN PLATELET VOLUME 8.5 fl (7.4-10.4); MONOCYTES % 9.4 % (2.0-8.0); NEUTROPHILS % 71.7 % (40.0-76.0); PLATELET 146 x1000/uL (130-400); RED CELL DISTRIBUTION WIDTH 15.9 % (11.6-14.6)
[2020-05-31 08:00] VITALS: BP 127/77
[2020-05-31 08:07] LABS: CHLORIDE 105 mEq/L (98-107)
[2020-05-31] MEDS: CARVEDILOL 3.125 MG TABLET PO SCH ×2 (09:12→21:15)
[2020-05-31] MEDS: APIXABAN 2.5 MG TABLET PO SCH ×2 (09:12→18:00)
[2020-05-31] MEDS: AMLODIPINE 2.5MG TABLET PO SCH (09:16)
[2020-05-31 12:00] VITALS: BP 125/60
[2020-05-31] MEDS: FUROSEMIDE 40MG/4ML VIAL IVP SCH ×2 (15:24→19:55)
[2020-05-31 16:48] VITALS: BP 124/51
[2020-05-31 20:00] VITALS: BP 120/68
[2020-05-31] MEDS: ATORVASTATIN CALCIUM 40MG TABLET PO SCH (21:15)
[2020-06-01] VITALS: BP 140/55
[2020-06-01 04:00] VITALS: BP 121/71
[2020-06-01] MEDS: BLOOD SUGAR DIAGNOSTIC STRIP TEST SCH ×2 (06:42→12:11)
[2020-06-01 07:01] LABS: BASOPHILS % 0.8 % (0.0-2.0); EOSINOPHILS % 5.1 % (0.0-5.0); HEMATOCRIT. 28.8 % (36.0-48.0); HEMOGLOBIN. 9.6 g/dL (12.0-16.0); LYMPHOCYTES % 20.7 % (20.0-50.0); MEAN CORPUSCULAR HEMOGLOBIN 26.6 pg (28.0-32.0); MEAN CORPUSCULAR VOLUME 80.2 fL (81.0-99.0); MEAN PLATELET VOLUME 8.5 fl (7.4-10.4); MONOCYTES % 12.3 % (2.0-8.0); NEUTROPHILS % 61.1 % (40.0-76.0); PLATELET 160 x1000/uL (130-400); RED CELL DISTRIBUTION WIDTH 16.2 % (11.6-14.6)
[2020-06-01 07:13] LABS: CHLORIDE 101 mEq/L (98-107)
[2020-06-01 08:30] VITALS: BP 120/74
[2020-06-01] MEDS: APIXABAN 2.5 MG TABLET PO SCH (08:35)
[2020-06-01] MEDS: FUROSEMIDE 40MG/4ML VIAL IVP SCH (08:35)
[2020-06-01] MEDS: AMLODIPINE 2.5MG TABLET PO SCH (08:36)
[2020-06-01] MEDS: CARVEDILOL 3.125 MG TABLET PO SCH (08:37)
[2020-06-01 12:00] VITALS: BP 120/51
[2020-06-01] MEDS ORDERED: METOLAZONE 2.5MG TABLET PO SCH (12:00)
[2020-06-01] MEDS ORDERED: APIX2.5T PO (13:03)
[2020-06-01] MEDS ORDERED: FURO40TA5 PO (13:03)
[2020-06-01 14:10] VITALS: BP 120/51
[2020-06-01] MEDS ORDERED: FUROSEMIDE 40MG TABLET PO SCH (18:00)
== END 2020-06-01 19:11 | disposition home or self-care (01) | DRG 291 ==
LOC: ER 07:30 → EDBEDREQ 12:16 → EDBEDREQTM 12:16 → 6WST 12:32 → EDBEDREQTM 12:35 → EDBEDREQ 12:35 → ENRESERV 17:02 → 6WST 17:54
PROVIDERS: ADMIT Internal Medicine; ATTEND Internal Medicine
DX: I13.0 Hypertensive heart and chronic kidney disease with heart failure and stage 1 through stage 4 chronic kidney disease, or unspecified chronic kidney disease (principal); I50.33 Acute on chronic diastolic (congestive) heart failure; G93.41 Metabolic encephalopathy; N39.0 Urinary tract infection, site not specified; J84.9 Interstitial pulmonary disease, unspecified; N17.9 Acute kidney failure, unspecified; I42.9 Cardiomyopathy, unspecified; E11.649 Type 2 diabetes mellitus with hypoglycemia without coma; E11.22 Type 2 diabetes mellitus with diabetic chronic kidney disease; E78.5 Hyperlipidemia, unspecified; E87.6 Hypokalemia; I25.10 Atherosclerotic heart disease of native coronary artery without angina pectoris; I27.21 Secondary pulmonary arterial hypertension; I48.91 Unspecified atrial fibrillation; D63.8 Anemia in other chronic diseases classified elsewhere; E78.00 Pure hypercholesterolemia, unspecified; D64.9 Anemia, unspecified; I34.0 Nonrheumatic mitral (valve) insufficiency; I36.1 Nonrheumatic tricuspid (valve) insufficiency; N18.9 Chronic kidney disease, unspecified; I25.2 Old myocardial infarction; Z79.4 Long term (current) use of insulin; Z95.1 Presence of aortocoronary bypass graft; Z79.84 Long term (current) use of oral hypoglycemic drugs; Z79.01 Long term (current) use of anticoagulants; Z79.899 Other long term (current) drug therapy; Z95.2 Presence of prosthetic heart valve; Z99.2 Dependence on renal dialysis
CPT/HCPCS: 36415; 71045; 80053; 80061; 81003; 82270; 82607; 82728; 82746; 82962; 83036; 83540; 83550; 83735; 83880; 84484; 85025; 85044; 93005; 97162; 99285; J1940

== ENCOUNTER 2020-08-13 14:56 | Inpatient (IN) | payer MEDICARE, OTHER ==
[~2020-08-13] VITALS: Ht 165.1 cm; Wt 93.4 kg
[~2020-08-13 14:56] MED LIST changes: +AMIO100T4 PO; +ASPI-1497 PO; +CARV25TA47 PO; -COR3 PO; +FOLI-43 PO; +POTA25TA8 PO
[2020-08-13] MEDS ORDERED: CEFTRIAXONE 1 G PREMIX 50 ML IV ONE (18:00)
[2020-08-13 18:23] LABS: BASOPHILS % 0.8 % (0.0-2.0); EOSINOPHILS % 3.1 % (0.0-5.0); HEMATOCRIT. 32.3 % (36.0-48.0); HEMOGLOBIN. 10.2 g/dL (12.0-16.0); LYMPHOCYTES % 13.9 % (20.0-50.0); MEAN PLATELET VOLUME 8.9 fl (7.4-10.4); MONOCYTES % 7.5 % (2.0-8.0); NEUTROPHILS % 74.7 % (40.0-76.0); PLATELET 143 x1000/uL (130-400); RED BLOOD CELL COUNT 4.08 mill/uL (4.2-5.4); RED CELL DISTRIBUTION WIDTH 16.1 % (11.6-14.6)
[2020-08-13] MEDS ORDERED: DEXTROSE 50% WATER 50ML SYRINGE IV PRN (19:00)
[2020-08-13] MEDS ORDERED: ONDANSETRON HCL 4MG/2ML INJ IV PRN (19:00)
[2020-08-13] MEDS ORDERED: AMIODARONE HCL 200 MG TABLET PO SCH (19:00)
[2020-08-13] MEDS ORDERED: APIXABAN 2.5 MG TABLET PO SCH (19:00)
[2020-08-13 20:30] VITALS: BP 139/67
[2020-08-13] MEDS ORDERED: HEPARIN 5000 UNITS/ML VIAL SUBCUT SCH (21:00)
[2020-08-13] MEDS ORDERED: AMLODIPINE 2.5MG TABLET PO SCH (21:00)
[2020-08-13] MEDS: BLOOD SUGAR DIAGNOSTIC STRIP TEST SCH (21:16)
[2020-08-13] MEDS: ATORVASTATIN CALCIUM 40MG TABLET PO SCH (21:36)
[2020-08-13] MEDS: INSULIN LISPRO 100 UNITS/ML SUBCUT SCH (21:46)
[2020-08-13] MEDS: ENOXAPARIN 80MG/0.8ML SYR SUBCUT SCH (21:59)
[2020-08-13] MEDS: CARVEDILOL 12.5MG TABLET PO SCH (21:59)
[2020-08-14] VITALS (7 sets, daily range): BP systolic 84–99; BP diastolic 36–52
[2020-08-14] MEDS: CARVEDILOL 12.5MG TABLET PO SCH ×2 (05:41→17:09)
[2020-08-14] MEDS: FUROSEMIDE 40MG TABLET PO SCH ×2 (05:57→17:10)
[2020-08-14] MEDS: BLOOD SUGAR DIAGNOSTIC STRIP TEST SCH ×4 (07:02→21:36)
[2020-08-14 07:16] LABS: BASOPHILS % 0.9 % (0.0-2.0); EOSINOPHILS % 3.3 % (0.0-5.0); HEMATOCRIT. 29.8 % (36.0-48.0); HEMOGLOBIN. 9.3 g/dL (12.0-16.0); MEAN CORPUSCULAR HEMOGLOBIN 24.8 pg (28.0-32.0); MEAN CORPUSCULAR VOLUME 79.5 fL (81.0-99.0); MEAN PLATELET VOLUME 9.3 fl (7.4-10.4); MONOCYTES % 10.5 % (2.0-8.0); NEUTROPHILS % 70.3 % (40.0-76.0); PLATELET 108 x1000/uL (130-400); RED BLOOD CELL COUNT 3.75 mill/uL (4.2-5.4)
[2020-08-14 07:19] LABS: INR 1.2; PROTHROMBIN TIME 12.4 sec (9.6-11.0)
[2020-08-14 07:21] LABS: CHLORIDE 108 mEq/L (98-107)
[2020-08-14] MEDS: INSULIN LISPRO 100 UNITS/ML SUBCUT SCH ×4 (07:50→22:15)
[2020-08-14] MEDS: FOLIC ACID 1MG TABLET PO SCH ×2 (09:26→17:10)
[2020-08-14] MEDS: POTASSIUM BICARB/CIT ACID 25 MEQ TABLET.EFF PO SCH (09:26)
[2020-08-14] MEDS: AMIODARONE HCL 200 MG TABLET PO SCH (09:26)
[2020-08-14] MEDS: ASPIRIN 81MG EC TABLET PO SCH (09:26)
[2020-08-14] MEDS ORDERED: PNEUMOCOCCAL 23-VAL P-SAC VAC 0.5 ML IM ONE (12:00)
[2020-08-14] MEDS: ENOXAPARIN 80MG/0.8ML SYR SUBCUT SCH (21:00)
[2020-08-14] MEDS: ATORVASTATIN CALCIUM 40MG TABLET PO SCH (21:25)
[2020-08-15] VITALS: BP 104/52
[2020-08-15 04:00] VITALS: BP 103/52
[2020-08-15] MEDS: CARVEDILOL 12.5MG TABLET PO SCH ×2 (06:00→17:37)
[2020-08-15] MEDS: FUROSEMIDE 40MG TABLET PO SCH ×2 (06:00→17:38)
[2020-08-15] MEDS: BLOOD SUGAR DIAGNOSTIC STRIP TEST SCH ×4 (06:20→21:34)
[2020-08-15 08:00] VITALS: BP 102/46
[2020-08-15] MEDS: POTASSIUM BICARB/CIT ACID 25 MEQ TABLET.EFF PO SCH (08:28)
[2020-08-15] MEDS: FOLIC ACID 1MG TABLET PO SCH ×2 (08:28→17:32)
[2020-08-15] MEDS: AMIODARONE HCL 200 MG TABLET PO SCH (08:28)
[2020-08-15] MEDS: ASPIRIN 81MG EC TABLET PO SCH (08:28)
[2020-08-15] MEDS: INSULIN LISPRO 100 UNITS/ML SUBCUT SCH ×4 (08:33→21:54)
[2020-08-15 10:46] LABS: BASOPHILS % 0.3 % (0.0-2.0); EOSINOPHILS % 1.2 % (0.0-5.0); HEMATOCRIT. 30.7 % (36.0-48.0); HEMOGLOBIN. 9.3 g/dL (12.0-16.0); LYMPHOCYTES % 9.8 % (20.0-50.0); MEAN CORPUSCULAR HEMOGLOBIN 24.8 pg (28.0-32.0); MEAN CORPUSCULAR VOLUME 81.4 fL (81.0-99.0); MEAN PLATELET VOLUME 9.1 fl (7.4-10.4); NEUTROPHILS % 83.7 % (40.0-76.0); PLATELET 143 x1000/uL (130-400); RED BLOOD CELL COUNT 3.77 mill/uL (4.2-5.4); RED CELL DISTRIBUTION WIDTH 16.3 % (11.6-14.6)
[2020-08-15 10:53] LABS: CHLORIDE 105 mEq/L (98-107)
[2020-08-15] MEDS ORDERED: MAGNESIUM HYDROXIDE 400MG/5ML 30ML UDC PO PRN (11:45)
[2020-08-15] MEDS ORDERED: SENNOSIDES/DOCUSATE SOD 8.6/50MG TABLET PO PRN (11:45)
[2020-08-15] MEDS ORDERED: DOCUSATE SODIUM 100MG CAPSULE PO PRN (11:45)
[2020-08-15] MEDS ORDERED: POLYETHYLENE GLYCOL 3350 (17GM) 1 DOSE PACK PO PRN (11:45)
[2020-08-15] MEDS ORDERED: BISACODYL 10MG SUPP PR PRN (11:45)
[2020-08-15] MEDS: NYSTATIN POWDER 15GM TOP SCH ×2 (12:58→17:32)
[2020-08-15] MEDS ORDERED: SODIUM POLYSTYRENE SULFONATE 15 G/60 ML BOT PO NR (13:00)
[2020-08-15 20:00] VITALS: BP 119/62
[2020-08-15] MEDS: ATORVASTATIN CALCIUM 40MG TABLET PO SCH (21:35)
[2020-08-15] MEDS: ENOXAPARIN 80MG/0.8ML SYR SUBCUT SCH (21:35)
[2020-08-16] VITALS (7 sets, daily range): BP systolic 109–137; BP diastolic 46–81
[2020-08-16] MEDS: ACETAMINOPHEN 325MG TABLET PO PRN (01:42)
[2020-08-16] MEDS: CARVEDILOL 12.5MG TABLET PO SCH (06:00)
[2020-08-16] MEDS: FUROSEMIDE 40MG TABLET PO SCH (06:41)
[2020-08-16 06:42] LABS: BASOPHILS % 0.5 % (0.0-2.0); EOSINOPHILS % 1.2 % (0.0-5.0); HEMATOCRIT. 30.6 % (36.0-48.0); HEMOGLOBIN. 9.3 g/dL (12.0-16.0); LYMPHOCYTES % 15.4 % (20.0-50.0); MEAN CORPUSCULAR HEMOGLOBIN 24.7 pg (28.0-32.0); MEAN CORPUSCULAR VOLUME 80.9 fL (81.0-99.0); MEAN PLATELET VOLUME 9.3 fl (7.4-10.4); MONOCYTES % 8.7 % (2.0-8.0); NEUTROPHILS % 74.2 % (40.0-76.0); PLATELET 127 x1000/uL (130-400); RED BLOOD CELL COUNT 3.78 mill/uL (4.2-5.4); RED CELL DISTRIBUTION WIDTH 15.8 % (11.6-14.6)
[2020-08-16] MEDS: BLOOD SUGAR DIAGNOSTIC STRIP TEST SCH ×4 (06:52→21:00)
[2020-08-16 06:59] LABS: CHLORIDE 103 mEq/L (98-107)
[2020-08-16] MEDS: FOLIC ACID 1MG TABLET PO SCH ×2 (08:44→17:39)
[2020-08-16] MEDS: AMIODARONE HCL 200 MG TABLET PO SCH (08:44)
[2020-08-16] MEDS: ASPIRIN 81MG EC TABLET PO SCH (08:44)
[2020-08-16] MEDS: INSULIN LISPRO 100 UNITS/ML SUBCUT SCH ×5 (09:05→20:51)
[2020-08-16] MEDS: NYSTATIN POWDER 15GM TOP SCH ×3 (09:15→17:00)
[2020-08-16 12:02] LABS: BG BASE EXCESS -2.1 mmol/L (-2.0-2.0); BG CARBOXYHEMOGLOBIN 0.9 % (0.5-1.5); BG DEOXYHEMOGLOBIN 3.4 % (0.0-5.0); BG FRACTION INSPIRED OXYGEN 28; BG HCO3 ACT 26.6 mmol/L (22.0-26.0); BG METHEMOGLOBIN 0.1 % (0.0-1.5); BG OXYGEN SATURATION 96.6 % (92.0-98.5); BG OXYHEMOGLOBIN 95.6 % (94.0-97.0); BG PCO2 67.3 mmHg (35.0-45.0); BG PH 7.214 (7.350-7.450); BG PO2 90.9 mmHg (75.0-100.0); BG SAMPLE SITE RIGHT RADIAL; BG TOTAL HEMOGLOBIN 10.7 g/dL (12.0-18.0); BG VENT MODE NASAL CANNULA
[2020-08-16] MEDS ORDERED: SODIUM BICARBONATE 8.4% 1 MEQ/ML 50ML SYR IV SCH (12:45)
[2020-08-16] MEDS ORDERED: SODIUM BICARBONATE 4% (2.4MEQ) 5ML VIAL IV ONE (14:21)
[2020-08-16] MEDS ORDERED: LIDOCAINE HCL 1% 20ML VIAL (Pyxis) INJ ONE (14:22)
[2020-08-16 15:12] LABS: BG BASE EXCESS -2.5 mmol/L (-2.0-2.0); BG CARBOXYHEMOGLOBIN 0.4 % (0.5-1.5); BG DEOXYHEMOGLOBIN 1.3 % (0.0-5.0); BG HCO3 ACT 25.4 mmol/L (22.0-26.0); BG METHEMOGLOBIN 0.1 % (0.0-1.5); BG OXYGEN SATURATION 98.7 % (92.0-98.5); BG OXYHEMOGLOBIN 98.2 % (94.0-97.0); BG PCO2 60.1 mmHg (35.0-45.0); BG PH 7.243 (7.350-7.450); BG PO2 144.7 mmHg (75.0-100.0); BG SAMPLE SITE RIGHT RADIAL; BG TOTAL HEMOGLOBIN 10.3 g/dL (12.0-18.0); BG VENT MODE MASK - BIPAP
[2020-08-16] MEDS: NEBIVOLOL HCL 5 MG TABLET PO SCH (17:39)
[2020-08-16] MEDS: SODIUM CHLORIDE 0.45% 1,000 ML IV SCH (17:46)
[2020-08-16] MEDS: ENOXAPARIN 80MG/0.8ML SYR SUBCUT SCH (20:48)
[2020-08-16] MEDS: ATORVASTATIN CALCIUM 40MG TABLET PO SCH (20:49)
[2020-08-17] VITALS (13 sets, daily range): BP systolic 94–131; BP diastolic 36–78
[2020-08-17] MEDS: INSULIN LISPRO 100 UNITS/ML SUBCUT SCH ×4 (06:49→20:50)
[2020-08-17] MEDS: BLOOD SUGAR DIAGNOSTIC STRIP TEST SCH ×4 (06:49→21:00)
[2020-08-17] MEDS: NYSTATIN POWDER 15GM TOP SCH ×3 (09:00→17:00)
[2020-08-17] MEDS: NEBIVOLOL HCL 5 MG TABLET PO SCH ×2 (09:00→17:00)
[2020-08-17] MEDS: AMIODARONE HCL 200 MG TABLET PO SCH (09:00)
[2020-08-17 09:51] LABS: BG CARBOXYHEMOGLOBIN 0.3 % (0.5-1.5); BG DEOXYHEMOGLOBIN 2.2 % (0.0-5.0); BG FRACTION INSPIRED OXYGEN 30; BG HCO3 ACT 23.7 mmol/L (22.0-26.0); BG METHEMOGLOBIN 0.3 % (0.0-1.5); BG OXYGEN SATURATION 97.8 % (92.0-98.5); BG OXYHEMOGLOBIN 97.2 % (94.0-97.0); BG PCO2 49.8 mmHg (35.0-45.0); BG PH 7.296 (7.350-7.450); BG PO2 107.8 mmHg (75.0-100.0); BG SAMPLE SITE RIGHT RADIAL; BG TOTAL HEMOGLOBIN 10.9 g/dL (12.0-18.0); BG TOTAL RESPIRATORY RATE 20 b/min; BG VENT MODE MASK - BIPAP
[2020-08-17] MEDS: ASPIRIN 81MG EC TABLET PO SCH (11:50)
[2020-08-17] MEDS: FOLIC ACID 1MG TABLET PO SCH ×2 (11:50→17:53)
[2020-08-17] MEDS: SODIUM CHLORIDE 0.45% 1,000 ML IV SCH (11:51)
[2020-08-17 12:51] LABS: CHLORIDE 104 mEq/L (98-107)
[2020-08-17] MEDS ORDERED: SODIUM POLYSTYRENE SULFONATE 15 G/60 ML BOT PO NR (17:00)
[2020-08-17] MEDS: TRAMADOL 50MG TABLET PO PRN (17:53)
[2020-08-17 19:47] LABS: BASOPHILS % 0.9 % (0.0-2.0); EOSINOPHILS % 1.5 % (0.0-5.0); HEMATOCRIT. 31.7 % (36.0-48.0); LYMPHOCYTES % 12.8 % (20.0-50.0); MEAN CORPUSCULAR VOLUME 79.3 fL (81.0-99.0); MEAN PLATELET VOLUME 8.7 fl (7.4-10.4); MONOCYTES % 9.7 % (2.0-8.0); NEUTROPHILS % 75.1 % (40.0-76.0); PLATELET 137 x1000/uL (130-400); RED CELL DISTRIBUTION WIDTH 15.9 % (11.6-14.6)
[2020-08-17] MEDS: ENOXAPARIN 80MG/0.8ML SYR SUBCUT SCH (20:47)
[2020-08-17] MEDS: ATORVASTATIN CALCIUM 40MG TABLET PO SCH (20:48)
[2020-08-17] MEDS: ACETAMINOPHEN 325MG TABLET PO PRN (20:48)
[2020-08-18] VITALS (11 sets, daily range): BP systolic 99–141; BP diastolic 43–80
[2020-08-18 06:26] LABS: BASOPHILS % 0.9 % (0.0-2.0); EOSINOPHILS % 2.2 % (0.0-5.0); HEMATOCRIT. 28.6 % (36.0-48.0); HEMOGLOBIN. 9.3 g/dL (12.0-16.0); LYMPHOCYTES % 17.8 % (20.0-50.0); MEAN CORPUSCULAR HEMOGLOBIN 25.3 pg (28.0-32.0); MEAN CORPUSCULAR VOLUME 78.3 fL (81.0-99.0); MEAN PLATELET VOLUME 8.9 fl (7.4-10.4); MONOCYTES % 13.4 % (2.0-8.0); NEUTROPHILS % 65.7 % (40.0-76.0); PLATELET 112 x1000/uL (130-400); RED BLOOD CELL COUNT 3.66 mill/uL (4.2-5.4); RED CELL DISTRIBUTION WIDTH 15.6 % (11.6-14.6)
[2020-08-18 06:29] LABS: CHLORIDE 103 mEq/L (98-107)
[2020-08-18] MEDS: BLOOD SUGAR DIAGNOSTIC STRIP TEST SCH ×4 (07:04→21:00)
[2020-08-18] MEDS: INSULIN LISPRO 100 UNITS/ML SUBCUT SCH ×4 (07:04→22:23)
[2020-08-18] MEDS: NEBIVOLOL HCL 5 MG TABLET PO SCH ×2 (08:14→16:29)
[2020-08-18] MEDS: ASPIRIN 81MG EC TABLET PO SCH (08:28)
[2020-08-18] MEDS: FOLIC ACID 1MG TABLET PO SCH ×2 (08:28→16:49)
[2020-08-18 08:55] LABS: CLARITY URINE TURBID (CLEAR); COLOR URINE DK YELLOW (YELLOW); KETONES URINE NEGATIVE (NEGATIVE); LEUKOCYTE ESTERASE URINE 2+ (NEGATIVE); NITRITE URINE NEGATIVE (NEGATIVE); OCCULT BLOOD URINE 3+ (NEGATIVE); PH URINE 5.5 (4.5-8.0); PROTEIN URINE 2+ (NEGATIVE); SPECIFIC GRAVITY URINE 1.017 (1.005-1.030)
[2020-08-18] MEDS ORDERED: AMIODARONE HCL 200 MG TABLET PO SCH (09:00)
[2020-08-18] MEDS: NYSTATIN POWDER 15GM TOP SCH ×3 (09:00→16:55)
[2020-08-18] MEDS: ACETAMINOPHEN 325MG TABLET PO PRN (11:45)
[2020-08-18] MEDS: ATORVASTATIN CALCIUM 40MG TABLET PO SCH (22:22)
[2020-08-18] MEDS: ENOXAPARIN 80MG/0.8ML SYR SUBCUT SCH (22:22)
[2020-08-19] VITALS (12 sets, daily range): BP systolic 113–136; BP diastolic 50–75
[2020-08-19] MEDS: IPRATROPIUM/ALBUTEROL 0.5-3(2.5)MG/3ML NEB HHN SCH ×4 (00:36→20:56)
[2020-08-19] MEDS: INSULIN LISPRO 100 UNITS/ML SUBCUT SCH ×4 (07:17→21:40)
[2020-08-19] MEDS: BLOOD SUGAR DIAGNOSTIC STRIP TEST SCH ×4 (07:30→21:38)
[2020-08-19 09:25] LABS: BASOPHILS % 0.6 % (0.0-2.0); EOSINOPHILS % 2.8 % (0.0-5.0); HEMOGLOBIN. 10.1 g/dL (12.0-16.0); LYMPHOCYTES % 14.3 % (20.0-50.0); MEAN CORPUSCULAR HEMOGLOBIN 25.7 pg (28.0-32.0); MEAN CORPUSCULAR VOLUME 78.7 fL (81.0-99.0); MEAN PLATELET VOLUME 8.4 fl (7.4-10.4); MONOCYTES % 9.3 % (2.0-8.0); PLATELET 115 x1000/uL (130-400); RED BLOOD CELL COUNT 3.94 mill/uL (4.2-5.4); RED CELL DISTRIBUTION WIDTH 15.6 % (11.6-14.6)
[2020-08-19] MEDS: FOLIC ACID 1MG TABLET PO SCH ×2 (09:45→16:23)
[2020-08-19] MEDS: ASPIRIN 81MG EC TABLET PO SCH (09:45)
[2020-08-19] MEDS: NEBIVOLOL HCL 5 MG TABLET PO SCH ×2 (09:46→16:22)
[2020-08-19] MEDS ORDERED: LIDOCAINE HCL/PF 1% 2ML VIAL ONE (10:00)
[2020-08-19] MEDS: NYSTATIN POWDER 15GM TOP SCH ×3 (13:45→16:25)
[2020-08-19 14:38] LABS: BG BASE EXCESS -1.5 mmol/L (-2.0-2.0); BG CARBOXYHEMOGLOBIN 0.5 % (0.5-1.5); BG DEOXYHEMOGLOBIN 14.2 % (0.0-5.0); BG HCO3 ACT 26.1 mmol/L (22.0-26.0); BG METHEMOGLOBIN 0.1 % (0.0-1.5); BG OXYGEN SATURATION 85.7 % (92.0-98.5); BG OXYHEMOGLOBIN 85.2 % (94.0-97.0); BG PCO2 58.5 mmHg (35.0-45.0); BG PH 7.268 (7.350-7.450); BG PO2 52.2 mmHg (75.0-100.0); BG SAMPLE SITE RIGHT RADIAL; BG TOTAL HEMOGLOBIN 10.9 g/dL (12.0-18.0); BG VENT MODE ROOM AIR
[2020-08-19] MEDS: ACETAMINOPHEN 325MG TABLET PO PRN (15:29)
[2020-08-19] MEDS: ENOXAPARIN 100MG/ML SYR SUBCUT SCH (20:00)
[2020-08-19] MEDS: ATORVASTATIN CALCIUM 40MG TABLET PO SCH (21:35)
[2020-08-20] VITALS (11 sets, daily range): BP systolic 106–126; BP diastolic 51–74
[2020-08-20 06:10] LABS: BASOPHILS % 0.4 % (0.0-2.0); EOSINOPHILS % 2.3 % (0.0-5.0); HEMATOCRIT. 31.5 % (36.0-48.0); HEMOGLOBIN. 9.9 g/dL (12.0-16.0); LYMPHOCYTES % 10.1 % (20.0-50.0); MEAN CORPUSCULAR HEMOGLOBIN 24.8 pg (28.0-32.0); MEAN CORPUSCULAR VOLUME 78.7 fL (81.0-99.0); MONOCYTES % 10.2 % (2.0-8.0); PLATELET 121 x1000/uL (130-400); RED BLOOD CELL COUNT 4.01 mill/uL (4.2-5.4); RED CELL DISTRIBUTION WIDTH 15.7 % (11.6-14.6)
[2020-08-20] MEDS: BLOOD SUGAR DIAGNOSTIC STRIP TEST SCH ×4 (07:30→20:36)
[2020-08-20] MEDS: INSULIN LISPRO 100 UNITS/ML SUBCUT SCH ×4 (08:00→20:48)
[2020-08-20] MEDS: ASPIRIN 81MG EC TABLET PO SCH (09:24)
[2020-08-20] MEDS: NYSTATIN POWDER 15GM TOP SCH ×3 (09:25→17:29)
[2020-08-20] MEDS: NEBIVOLOL HCL 5 MG TABLET PO SCH ×2 (09:25→17:29)
[2020-08-20] MEDS: FOLIC ACID 1MG TABLET PO SCH ×2 (09:25→17:30)
[2020-08-20] MEDS: IPRATROPIUM/ALBUTEROL 0.5-3(2.5)MG/3ML NEB HHN SCH ×2 (09:29→16:51)
[2020-08-20] MEDS: TRAMADOL 50MG TABLET PO PRN (15:38)
[2020-08-20] MEDS: ENOXAPARIN 100MG/ML SYR SUBCUT SCH (20:36)
[2020-08-20] MEDS: ATORVASTATIN CALCIUM 40MG TABLET PO SCH (20:40)
[2020-08-21] VITALS (11 sets, daily range): BP systolic 104–133; BP diastolic 51–88
[2020-08-21] MEDS: IPRATROPIUM/ALBUTEROL 0.5-3(2.5)MG/3ML NEB HHN SCH ×2 (00:36→11:42)
[2020-08-21] MEDS: INSULIN LISPRO 100 UNITS/ML SUBCUT SCH ×4 (08:06→21:10)
[2020-08-21] MEDS: BLOOD SUGAR DIAGNOSTIC STRIP TEST SCH ×4 (08:07→20:55)
[2020-08-21] MEDS: NYSTATIN POWDER 15GM TOP SCH ×3 (08:07→18:51)
[2020-08-21] MEDS: FOLIC ACID 1MG TABLET PO SCH ×2 (08:07→18:50)
[2020-08-21] MEDS: ASPIRIN 81MG EC TABLET PO SCH (08:07)
[2020-08-21] MEDS: NEBIVOLOL HCL 5 MG TABLET PO SCH ×3 (08:09→18:50)
[2020-08-21] MEDS: TRAMADOL 50MG TABLET PO PRN ×2 (12:13→18:50)
[2020-08-21 12:23] LABS: BASOPHILS % 0.7 % (0.0-2.0); EOSINOPHILS % 2.9 % (0.0-5.0); HEMATOCRIT. 32.8 % (36.0-48.0); LYMPHOCYTES % 17.1 % (20.0-50.0); MEAN CORPUSCULAR HEMOGLOBIN 24.7 pg (28.0-32.0); MEAN CORPUSCULAR VOLUME 81.2 fL (81.0-99.0); MONOCYTES % 8.7 % (2.0-8.0); NEUTROPHILS % 70.6 % (40.0-76.0); PLATELET 110 x1000/uL (130-400); RED BLOOD CELL COUNT 4.04 mill/uL (4.2-5.4); RED CELL DISTRIBUTION WIDTH 15.8 % (11.6-14.6)
[2020-08-21 13:23] LABS: BG BASE EXCESS -0.4 mmol/L (-2.0-2.0); BG CARBOXYHEMOGLOBIN 0.4 % (0.5-1.5); BG DEOXYHEMOGLOBIN 2.7 % (0.0-5.0); BG HCO3 ACT 28.6 mmol/L (22.0-26.0); BG METHEMOGLOBIN 0.2 % (0.0-1.5); BG OXYGEN SATURATION 97.3 % (92.0-98.5); BG OXYHEMOGLOBIN 96.7 % (94.0-97.0); BG PCO2 72.4 mmHg (35.0-45.0); BG PH 7.215 (7.350-7.450); BG PO2 98.5 mmHg (75.0-100.0); BG SAMPLE SITE RIGHT RADIAL; BG TOTAL HEMOGLOBIN 10.9 g/dL (12.0-18.0); BG VENT MODE NASAL CANNULA
[2020-08-21] MEDS: ENOXAPARIN 100MG/ML SYR SUBCUT SCH (20:00)
[2020-08-21] MEDS: ATORVASTATIN CALCIUM 40MG TABLET PO SCH (21:07)
[2020-08-22] VITALS (9 sets, daily range): BP systolic 108–131; BP diastolic 46–63
[2020-08-22] MEDS: IPRATROPIUM/ALBUTEROL 0.5-3(2.5)MG/3ML NEB HHN SCH ×3 (00:07→16:58)
[2020-08-22 07:25] LABS: BASOPHILS % 0.3 % (0.0-2.0); EOSINOPHILS % 3.5 % (0.0-5.0); HEMATOCRIT. 31.1 % (36.0-48.0); HEMOGLOBIN. 9.5 g/dL (12.0-16.0); MEAN CORPUSCULAR HEMOGLOBIN 24.5 pg (28.0-32.0); MEAN CORPUSCULAR VOLUME 80.4 fL (81.0-99.0); MEAN PLATELET VOLUME 9.3 fl (7.4-10.4); MONOCYTES % 9.1 % (2.0-8.0); NEUTROPHILS % 76.1 % (40.0-76.0); PLATELET 89 x1000/uL (130-400); RED BLOOD CELL COUNT 3.87 mill/uL (4.2-5.4); RED CELL DISTRIBUTION WIDTH 16.3 % (11.6-14.6)
[2020-08-22] MEDS: BLOOD SUGAR DIAGNOSTIC STRIP TEST SCH ×4 (07:30→21:31)
[2020-08-22] MEDS: FOLIC ACID 1MG TABLET PO SCH ×2 (09:02→18:13)
[2020-08-22] MEDS: NEBIVOLOL HCL 5 MG TABLET PO SCH ×2 (09:04→18:13)
[2020-08-22] MEDS: INSULIN LISPRO 100 UNITS/ML SUBCUT SCH ×4 (09:06→21:33)
[2020-08-22] MEDS: NYSTATIN POWDER 15GM TOP SCH ×3 (09:10→17:00)
[2020-08-22] MEDS: ENOXAPARIN 100MG/ML SYR SUBCUT SCH (21:31)
[2020-08-22] MEDS: ATORVASTATIN CALCIUM 40MG TABLET PO SCH (21:34)
[2020-08-23] VITALS (11 sets, daily range): BP systolic 103–127; BP diastolic 54–76
[2020-08-23] MEDS: IPRATROPIUM/ALBUTEROL 0.5-3(2.5)MG/3ML NEB HHN SCH ×4 (00:43→21:11)
[2020-08-23] MEDS: BLOOD SUGAR DIAGNOSTIC STRIP TEST SCH ×5 (08:11→20:49)
[2020-08-23] MEDS: NEBIVOLOL HCL 5 MG TABLET PO SCH ×2 (08:52→17:00)
[2020-08-23] MEDS: FOLIC ACID 1MG TABLET PO SCH ×2 (08:52→17:57)
[2020-08-23] MEDS: INSULIN LISPRO 100 UNITS/ML SUBCUT SCH ×4 (08:57→20:54)
[2020-08-23] MEDS: ACETAMINOPHEN 325MG TABLET PO PRN ×4 (09:00→23:58)
[2020-08-23] MEDS: NYSTATIN POWDER 15GM TOP SCH ×3 (09:00→17:00)
[2020-08-23 12:21] LABS: BASOPHILS % 0.7 % (0.0-2.0); EOSINOPHILS % 3.5 % (0.0-5.0); HEMATOCRIT. 30.7 % (36.0-48.0); HEMOGLOBIN. 9.5 g/dL (12.0-16.0); LYMPHOCYTES % 12.7 % (20.0-50.0); MEAN CORPUSCULAR HEMOGLOBIN 24.4 pg (28.0-32.0); MEAN CORPUSCULAR VOLUME 78.9 fL (81.0-99.0); MEAN PLATELET VOLUME 9.3 fl (7.4-10.4); MONOCYTES % 10.4 % (2.0-8.0); NEUTROPHILS % 72.7 % (40.0-76.0); PLATELET 89 x1000/uL (130-400); RED BLOOD CELL COUNT 3.89 mill/uL (4.2-5.4); RED CELL DISTRIBUTION WIDTH 15.8 % (11.6-14.6)
[2020-08-23 12:34] LABS: CHLORIDE 102 mEq/L (98-107)
[2020-08-23] MEDS: ENOXAPARIN 100MG/ML SYR SUBCUT SCH (20:48)
[2020-08-23] MEDS: TRAZODONE HCL 50MG TABLET PO PRN (20:48)
[2020-08-23] MEDS: ATORVASTATIN CALCIUM 40MG TABLET PO SCH (20:49)
[2020-08-24] VITALS (11 sets, daily range): BP systolic 113–136; BP diastolic 54–82
[2020-08-24] MEDS: IPRATROPIUM/ALBUTEROL 0.5-3(2.5)MG/3ML NEB HHN SCH ×3 (00:22→16:08)
[2020-08-24] MEDS: BLOOD SUGAR DIAGNOSTIC STRIP TEST SCH ×4 (07:55→21:00)
[2020-08-24] MEDS: FOLIC ACID 1MG TABLET PO SCH ×2 (08:07→17:45)
[2020-08-24] MEDS: INSULIN LISPRO 100 UNITS/ML SUBCUT SCH ×4 (08:13→21:00)
[2020-08-24] MEDS: NEBIVOLOL HCL 5 MG TABLET PO SCH ×2 (08:16→17:00)
[2020-08-24] MEDS: NYSTATIN POWDER 15GM TOP SCH ×3 (09:12→18:52)
[2020-08-24] MEDS: ACETAMINOPHEN 325MG TABLET PO PRN ×2 (10:26→22:54)
[2020-08-24 11:37] LABS: BG BASE EXCESS 2.7 mmol/L (-2.0-2.0); BG CARBOXYHEMOGLOBIN 0.3 % (0.5-1.5); BG FRACTION INSPIRED OXYGEN 28; BG HCO3 ACT 30.2 mmol/L (22.0-26.0); BG METHEMOGLOBIN 0.2 % (0.0-1.5); BG OXYHEMOGLOBIN 97.5 % (94.0-97.0); BG PCO2 62.6 mmHg (35.0-45.0); BG PH 7.302 (7.350-7.450); BG PO2 114.9 mmHg (75.0-100.0); BG SAMPLE SITE RIGHT RADIAL; BG TOTAL HEMOGLOBIN 10.6 g/dL (12.0-18.0); BG VENT MODE NASAL CANNULA
[2020-08-24 16:48] LABS: BASOPHILS % 0.7 % (0.0-2.0); EOSINOPHILS % 3.4 % (0.0-5.0); HEMATOCRIT. 30.8 % (36.0-48.0); HEMOGLOBIN. 9.7 g/dL (12.0-16.0); MEAN CORPUSCULAR VOLUME 79.1 fL (81.0-99.0); MEAN PLATELET VOLUME 9.6 fl (7.4-10.4); NEUTROPHILS % 65.9 % (40.0-76.0); PLATELET 83 x1000/uL (130-400); RED BLOOD CELL COUNT 3.89 mill/uL (4.2-5.4)
[2020-08-24 17:21] LABS: CHLORIDE 102 mEq/L (98-107)
[2020-08-24] MEDS: TRAZODONE HCL 50MG TABLET PO PRN (22:54)
[2020-08-24] MEDS: ATORVASTATIN CALCIUM 40MG TABLET PO SCH (23:02)
[2020-08-24] MEDS: ENOXAPARIN 100MG/ML SYR SUBCUT SCH (23:03)
[2020-08-25] VITALS (11 sets, daily range): BP systolic 118–156; BP diastolic 55–102
[2020-08-25] MEDS: BLOOD SUGAR DIAGNOSTIC STRIP TEST SCH ×4 (07:30→20:59)
[2020-08-25] MEDS: INSULIN LISPRO 100 UNITS/ML SUBCUT SCH ×4 (08:00→21:02)
[2020-08-25] MEDS: IPRATROPIUM/ALBUTEROL 0.5-3(2.5)MG/3ML NEB HHN SCH ×2 (08:08→15:46)
[2020-08-25] MEDS: NEBIVOLOL HCL 5 MG TABLET PO SCH ×2 (09:44→18:11)
[2020-08-25] MEDS: NYSTATIN POWDER 15GM TOP SCH ×3 (09:45→17:00)
[2020-08-25] MEDS: FOLIC ACID 1MG TABLET PO SCH ×2 (09:45→18:11)
[2020-08-25] MEDS: ENOXAPARIN 100MG/ML SYR SUBCUT SCH (20:58)
[2020-08-25] MEDS: ATORVASTATIN CALCIUM 40MG TABLET PO SCH (20:59)
== END 2020-08-26 00:08 | DRG 291 ==
LOC: ER 14:56 → 6EST 18:39 → EDBEDREQ 18:40 → EDBEDREQTM 18:40 → ENRESERV 19:21 → 5EST 08-16 12:39
PROVIDERS: ADMIT Internal Medicine; ATTEND Internal Medicine
PROC: 05HY33Z Insertion of Infusion Device into Upper Vein, Percutaneous Approach (ICD-10-PCS; principal; 2020-08-16)
PROC: B54MZZA Ultrasonography of Right Upper Extremity Veins, Guidance (ICD-10-PCS; 2020-08-16)
PROC: 5A09457 Assistance with Respiratory Ventilation, 24-96 Consecutive Hours, Continuous Positive Airway Pressure (ICD-10-PCS; 2020-08-16)
PROC: 5A09357 Assistance with Respiratory Ventilation, Less than 24 Consecutive Hours, Continuous Positive Airway Pressure (ICD-10-PCS; 2020-08-20)
PROC: 5A09457 Assistance with Respiratory Ventilation, 24-96 Consecutive Hours, Continuous Positive Airway Pressure (ICD-10-PCS; 2020-08-21)
PROC: 0W993ZZ Drainage of Right Pleural Cavity, Percutaneous Approach (ICD-10-PCS; 2020-08-22)
PROC: 5A09357 Assistance with Respiratory Ventilation, Less than 24 Consecutive Hours, Continuous Positive Airway Pressure (ICD-10-PCS; 2020-08-23)
DX: I13.0 Hypertensive heart and chronic kidney disease with heart failure and stage 1 through stage 4 chronic kidney disease, or unspecified chronic kidney disease (principal); N17.0 Acute kidney failure with tubular necrosis; J96.02 Acute respiratory failure with hypercapnia; J96.01 Acute respiratory failure with hypoxia; I50.23 Acute on chronic systolic (congestive) heart failure; L03.115 Cellulitis of right lower limb; L03.116 Cellulitis of left lower limb; L97.929 Non-pressure chronic ulcer of unspecified part of left lower leg with unspecified severity; L97.919 Non-pressure chronic ulcer of unspecified part of right lower leg with unspecified severity; I48.19 Other persistent atrial fibrillation; E87.1 Hypo-osmolality and hyponatremia; E87.2 Acidosis; J90 Pleural effusion, not elsewhere classified; I42.9 Cardiomyopathy, unspecified; D64.9 Anemia, unspecified; E11.22 Type 2 diabetes mellitus with diabetic chronic kidney disease; I25.10 Atherosclerotic heart disease of native coronary artery without angina pectoris; I25.82 Chronic total occlusion of coronary artery; I48.0 Paroxysmal atrial fibrillation; N18.9 Chronic kidney disease, unspecified; I87.2 Venous insufficiency (chronic) (peripheral); E11.51 Type 2 diabetes mellitus with diabetic peripheral angiopathy without gangrene; I95.9 Hypotension, unspecified; E78.5 Hyperlipidemia, unspecified; I27.20 Pulmonary hypertension, unspecified; R23.4 Changes in skin texture; I87.8 Other specified disorders of veins; B37.9 Candidiasis, unspecified; E66.9 Obesity, unspecified; I70.209 Unspecified atherosclerosis of native arteries of extremities, unspecified extremity; Z20.828 Contact with and (suspected) exposure to other viral communicable diseases; D69.6 Thrombocytopenia, unspecified; R00.1 Bradycardia, unspecified; Z87.891 Personal history of nicotine dependence; I25.2 Old myocardial infarction; Z95.1 Presence of aortocoronary bypass graft; Z88.2 Allergy status to sulfonamides; Z88.8 Allergy status to other drugs, medicaments and biological substances; Z79.84 Long term (current) use of oral hypoglycemic drugs; Z79.82 Long term (current) use of aspirin; Z79.899 Other long term (current) drug therapy; Z79.01 Long term (current) use of anticoagulants; Z95.2 Presence of prosthetic heart valve; Z68.34 Body mass index [BMI] 34.0-34.9, adult
CPT/HCPCS: 32555; 36415; 36600; 71045; 71250; 76604; 76770; 76937; 80048; 80053; 81003; 82040; 82375; 82805; 82962; 83036; 83615; 83735; 83880; 84132; 84443; 85025; 87106; 87426; 90732; 93005; 93306; 93923; 96372; 97162; 97166; 97168; 99285; A6261; C1725; J0696; J1650; J1815; J3490